=== PATIENT | female | born 1950 | race Caucasian/White ===

== ENCOUNTER → 2019-11-05 15:26 | Outpatient (CLI) | payer MEDICARE, SELFPAY ==
--- NOTE | ~2019-11-05 | XR_ITS ---
EXAMINATION: XR shoulder RT min 2V EXAM DATE: 11/05/2019 15:41 INDICATION: No known recent injury provided at this time. Pain of the right shoulder. TECHNIQUE: The following right shoulder projections obtained: frontal projection with internal rotati on, frontal projection with external rotation, Grashey, and axillary (4+ views). There is no prior s tudy for comparison. FINDINGS: No evidence of right shoulder rotator cuff calcific tendinosis. There is mild glenohumer al, moderate acromioclavicular joint primary osteoarthritis. There are no acute fractures or dislocat ions identified. There is no subcutaneous gas. The soft tissue is unremarkable. There are no radi opaque foreign bodies. IMPRESSION: Mild right glenohumeral, moderate acromioclavicular osteoarthritis. Reviewed, dictated and finalized at location A.
== END ==
PROVIDERS: PCP Physician Assistant; Visit Provider Physician Assistant
DX: M19.011 Primary osteoarthritis, right shoulder (principal)
CPT/HCPCS: 73030

== ENCOUNTER → 2020-03-22 12:18 | Outpatient (CLI) | payer MEDICARE, SELFPAY ==
--- NOTE | ~2020-03-22 | DEXA_ITS ---
Bone Density Report Name: Gay Riddle Age: 69 Sex: Female Ethnicity: White Date of : 1950 Indication: osteopenia; height loss; prior fracture; postmenopausal Referring Provider: BERNARD DAWKINS Study: Bone densitometry was performed. Exam Date: March 22, 2020 Accession number: [id number] Bone Density: Region BMD T-score Z-score Classification AP Spine (L1-L4) 0.835 -1.9 0.3 Osteopenia Femoral Neck (Left) 0.559 -2.6 -0.7 Osteoporosis Total Hip (Left) 0.786 -1.3 0.3 Osteopenia Femoral Neck (Right) 0.543 -2.8 -0.9 Osteoporosis Total Hip (Right) 0.789 -1.3 0.3 Osteopenia Total Hip Mean 0.788 -1.3 0.3 Osteopenia World Health Organization criteria for BMD impression classify patients as: Normal (T-score at or above -1.0), Osteopenia (T-score between -1.0 and -2.5), or Osteoporosis (T-score at or below -2.5). 10-year Fracture Risk: FRAX not reported because: Some T-score for Spine Total or Hip Total or Femoral Neck at or below -2.5 Prior hip or vertebral fracture Previous Exams: Region Exam Age BMD T-score BMD Change BMD Change Date g/cm2 vs Baseline vs Previous AP Spine(L1-L4) 03/22/2020 69 0.835 -1.9 -0.016 -0.063* 04/04/2017 66 0.898 -1.4 0.046 0.030* 10/16/2013 63 0.868 -1.6 0.016 0.043* 09/28/2010 60 0.825 -2.0 -0.027 -0.017 09/09/2009 59 0.842 -1.9 -0.010 -0.004 09/01/2007 57 0.846 -1.8 -0.005 0.010 08/28/2006 56 0.836 -1.9 -0.016 0.010 08/21/2004 54 0.826 -2.0 -0.025 -0.025 07/23/2002 51 0.852 -1.8 Total Hip(Left) 03/22/2020 69 0.786 -1.3 -0.039 -0.116* 04/04/2017 66 0.902 -0.3 0.076 0.043* 10/16/2013 63 0.859 -0.7 0.034 0.057* 09/28/2010 60 0.802 -1.1 -0.024 -0.007 09/09/2009 59 0.809 -1.1 -0.017 0.046* 09/01/2007 57 0.762 -1.5 -0.063 -0.015 08/28/2006 56 0.777 -1.4 -0.048 -0.130* 08/21/2004 54 0.907 -0.3 0.082 0.082 07/23/2002 51 0.825 -1.0 Total Hip(Right) 03/22/2020 69 0.789 -1.3 -0.036 -0.130* 04/04/2017 66 0.918 -0.2 0.093 0.036* 10/16/2013 63 0.882 -0.5 0.057 0.069* 09/28/2010 60 0.813 -1.1 -0.012 -0.057* 09/09/2009 59 0.870 -0.6 0.045 0.059* 09/01/2007 57 0.811 -1.1 -0.014 -0.021 08/28/2006 56 0.832 -0.9 0.007
== END ==
PROVIDERS: PCP Family Medicine; Visit Provider Physician Assistant
DX: M85.88 Other specified disorders of bone density and structure, other site (principal); M81.0 Age-related osteoporosis without current pathological fracture; M85.852 Other specified disorders of bone density and structure, left thigh; M85.851 Other specified disorders of bone density and structure, right thigh
CPT/HCPCS: 77080

== ENCOUNTER → 2020-03-24 08:06 | Outpatient (CLI) | payer MEDICARE, SELFPAY ==
--- NOTE | ~2020-03-24 | MM_ITS ---
EXAMINATION: MM screening sukhdev BI w hodan HISTORY: Screening TECHNIQUE: Craniocaudal and mediolateral oblique 3-D tomosynthesis images were obtained and synthetic 2-D images were generated. CAD analysis was submitted and interpreted. COMPARISON: Comparison to multiple prior studies sequentially, with oldest reviewed study dated 2014. BREAST PARENCHYMAL COMPOSITION: There are scattered areas of fibroglandular density. FINDINGS: There is no evidence of suspicious mass, calcification, or architectural distortion to sugg est malignancy in either breast. There has been no suspicious interval change. IMPRESSION: 1. No mammographic evidence of malignancy. 2. Recommend routine screening mammography in one year. BI-RADS Category 1: Negative Reviewed, dictated and finalized at location A. T PREPARER
== END ==
PROVIDERS: PCP Family Medicine; Visit Provider Family Medicine
DX: Z12.31 Encounter for screening mammogram for malignant neoplasm of breast (principal)
CPT/HCPCS: 77063; 77067

== ENCOUNTER → 2020-08-25 13:44 | Outpatient (REF) | payer MEDICARE, SELFPAY | LOC: ANHLAB 13:44 | PROVIDERS: PCP Family Medicine; Visit Provider Nurse Practitioner | DX: R22.9 Localized swelling, mass and lump, unspecified (principal) | CPT/HCPCS: 88304 ==

== ENCOUNTER 2020-10-28 10:10 | Emergency (ER) | payer MEDICARE, SELFPAY ==
[2020-10-28] VITALS (39 sets, daily range): BP systolic 137–178; BP diastolic 62–96; PULSE 60–83; RESP 12–21; TEMP 37; O2SAT 95–99
--- NOTE | ~2020-10-28 | XR_ITS ---
EXAMINATION: XR chest 1V portable EXAM DATE: 10/28/2020 10:29 INDICATION: Right-sided chest pain radiating to shoulder. Hypertension. TECHNIQUE: Portable AP frontal chest x-ray was obtained. There is no prior study for comparison. FINDINGS: The lungs are hyperinflated which can be seen with chronic obstructive pulmonary disease (a clinical diagnosis of functional impairment), but is not diagnostic of it. The lungs are clear. The re are no pleural effusions. Cardiomediastinal silhouette is normal. There is no pneumothorax suspe cted. The bones and soft tissues are unremarkable. IMPRESSION: 1. No acute cardiopulmonary findings. 2. Hyperinflation. Reviewed, dictated and finalized at location B.
--- NOTE | 2020-10-28 10:15 | ECG_ITS ---
Measurements Intervals [place] Rate: 78 P: 66 ND: 158 QRS: 20 QRSD: 79 T: 9 QT: 350 QTc: 399 Interpretive Statements SINUS RHYTHM NORMAL ECG Electronically Signed On 10-28-2020 10:31:50 CDT by Naeem Richards D.O.
[2020-10-28 10:40] LABS: Basophils Percent Auto 0.5 % (0.2-1.2); Eosinophils Absolute Auto 0.1 K/mm3 (0-0.3); Eosinophils Percent Auto 1.6 % (0-4.4); Hematocrit 39.1 % (37.0-47.0); Hemoglobin 13.3 g/dL (12.0-15.0); Immature Granulocyte Absolute 0.02 K/mm3 (0.00-0.031); Immature Granulocyte Percent A 0.3 % (0-0.5); Mean Corpuscular Hemoglobin 30.2 pg (26-34); Mean Corpuscular Volume 88.9 fl (80-100); Mean Platelet Volume 10.5 fl (7.4-10.4); Monocytes Absolute Auto 0.6 K/mm3 (0.1-0.6); Neutrophils Absolute Auto 5.2 K/mm3 (1.3-6.7); Neutrophils Percent Auto 69.6 % (45.5-73.1); Platelet Count Result 332 k/mm3 (150-375); Red Cell Distribution Width 12.9 % (11.5-14.5); White Blood Count 7.5 K/mm3 (4.5-10.0)
[2020-10-28 10:44] LABS: Alanine Aminotransferase 34 U/L (4-35); Albumin Level 4.7 g/dL (3.5-5.1); Alkaline Phosphatase 87 U/L (38-126); Anion Gap 11 mmol/L (8-16); Aspartate Amino Transferase 42 U/L (14-36); Bilirubin,Total 0.8 mg/dL (0.2-1.3); Blood Urea Nitrogen 16 mg/dL (7-17); Carbon Dioxide 27 mmol/L (22-30); Chloride 95 mmol/L (98-107); Estimated CRCL calculation 44 ml/min; Estimated Glomerular Filt Rate > 60; Glucose 100 mg/dL (65-110); Lipase 176 U/L (23-300); Partial Thromboplastin Time 29.4 SECONDS (22.3-36.8); Potassium 4.1 mmol/L (3.4-5.0); Prothrombin Time 12.6 Seconds (11.1-14.7); Sodium 133 mmol/L (137-145)
[2020-10-28 10:55] LABS: NT Pro B Type Natriuretic Pept 48 pg/mL (5-100); Troponin I < 0.012 ng/mL (0.000-0.034)
[2020-10-28 11:29] LABS: Add Urine Microscopic? YES; Appearance Urine Clear (Clear); Bilirubin Urine Negative (Negative); Blood Urine Negative (Negative); Color Urine Yellow (Yellow); Glucose Urine UA Negative (Negative); Ketones Urine Trace mg/dL (Negative); Leukocyte Esterase Ur Negative LEU/UL (Negative); Mucus Urine Rare /lpf; Nitrate Urine Negative (Negative); Protein Urine Negative (Negative); RBC Urine 0-2 /hpf (0-2); Specific Grav Ur 1.016 (1.001-1.035); Urobilinogen Urine Negative mg/dL (<2.0); WBC Urine 0-3 /hpf
--- NOTE | 2020-10-28 12:15 | ED.GENADULT ---
HPI - General Adult General Chief complaint: Chest Pain <GUANACO Mcgregor Last Filed: 10/28/20 15:36> Stated complaint: left shoulder pain, heaviness in chest <GUANACO Mcgregor Last Filed: 10/28/20 15:36> Time Seen by Provider: 10/28/20 10:14 <GUANACO Mcgregor Last Filed: 10/28/20 15:36> Source: patient, family and old records reviewed <GUANACO Mcgregor Last Filed: 10/28/20 15:36> Mode of arrival: ambulatory <GUANACO Mcgregor Last Filed: 10/28/20 15:36> Limitations: no limitations <GUANACO Mcgregor Last Filed: 10/28/20 15:36> History of Present Illness HPI narrative: Patient is a 70-year-old female who presents noting she has had right shoulder discomfort that started yesterday around noon with aching pain of the shoulder worse with activity and movement notes that she had been stacking bricks as a possible etiology pain persisted throughout the night this morning was sitting and became diaphoretic and felt nauseous which was short-lived. Patient is taken Tylenol for the pain with minimal improvement. Patient in no distress resting comfortably denies similar occurrence in the past is feeling much better at this time notes that the pain of the shoulder is reproducible <GUANACO Mcgregor Last Filed: 10/28/20 15:36> Related Data Home medications: Home Medications Medication Instructions Recorded Confirmed cholecalciferol (vitamin D3) 50 50 mcg PO DAILY 10/01/19 03/23/20 mcg (2,000 unit) capsule omega-3 fatty acids 1,000 mg 1,000 mg PO DAILY 10/01/19 03/23/20 capsule <GUANACO Mcgregor Last Filed: 10/28/20 15:36> Allergies/adverse reactions: Allergies Allergy/AdvReac Type Severity Reaction Status Date / Time No Known Allergies Allergy Mild Verified 10/13/20 13:23 <GUANACO Mcgregor Last Filed: 10/28/20 15:36> Review of Systems Review of Systems: All systems reviewed & are unremarkable except as noted in HPI and below <GUANACO Mcgregor Last Filed: 10/28/20 15:36> [facility] Past Medical History Medical History: Medical History Hypokalemia Migraine with vertigo Right shoulder pain Wellness examination <Al San PA-C - Last Filed: 10/28/20 15:36> Family History Family History: Family History Mother Cerebrovascular accident Carcinoma of colon Father Family history of coronary artery disease <Al San PA-C - Last Filed: 10/28/20 15:36> Social History Social History: Social History Smoking status: Never smoker Alcohol intake: current Substance use: never Gender identity (if verbalized by the patient): Female <Al San PA-C - Last Filed: 10/28/20 15:36> Exam Narrative: GENERAL: Well-appearing, well-nourished, and in no acute distress. HEAD: Normocephalic, atraumatic. EYES: PERRLA and EOMI. ENT: Nares clear, no rhinorrhea or epistaxis. Mucous membranes moist. Oropharynx without tonsillar hypertrophy exudate or other lesions. NECK: Supple. No adenopathy or masses. No carotid bruits or JVD CHEST: Clear to auscultation. No respiratory distress. No wheezes rales or rhonchi HEART: Regular rate and rhythm. No murmur heard. Normal peripheral pulses. ABDOMEN: Soft, nontender, nondistended EXTREMITIES: Normal range of motion. No edema. Patient notes tenderness of the right upper trapezius musculature SKIN: Warm, dry, no rash. NEURO: No focal deficits. Alert and oriented x3. Cranial nerves II through XII grossly intact. Normal speech and gait PSYCH: Normal mood and affect. <Al San PA-C - Last Filed: 10/28/20 15:36> Course Course Emergency Course: Patient aware of case findings treatment plan diagnosis resting comfortably no pain at this
[2020-10-28 13:56] LABS: Troponin I < 0.012 ng/mL (0.000-0.034)
== END 2020-10-28 15:50 | disposition home or self-care (01) ==
PROVIDERS: Emergency Medicine Emergency Medical Services; Emergency Provider General Practice; PCP Family Medicine
DX: M25.511 Pain in right shoulder (principal)
CPT/HCPCS: 36415; 71045; 80053; 81001; 83690; 83880; 84484; 85025; 85610; 85730; 93005; 96374; 99284; J0131

== ENCOUNTER → 2021-03-30 07:25 | Outpatient (CLI) | payer MEDICARE, SELFPAY ==
--- NOTE | ~2021-03-30 | MM_ITS ---
EXAMINATION: MM screening [facility] BI w hodan HISTORY: Screening TECHNIQUE: Craniocaudal and mediolateral oblique 3-D tomosynthesis images were obtained and synthetic 2-D images were generated. CAD analysis was submitted and interpreted. COMPARISON: Comparison to multiple prior studies sequentially, with oldest reviewed study dated 10/18. BREAST PARENCHYMAL COMPOSITION: There are scattered areas of fibroglandular density. FINDINGS: There is no evidence of suspicious mass, calcification, or architectural distortion to sugg est malignancy in either breast. There has been no suspicious interval change. IMPRESSION: 1. No mammographic evidence of malignancy. 2. Recommend routine screening mammography in one year. BI-RADS Category 2: Benign finding(s). Reviewed, dictated and finalized at location A. IE SUPERVISOR
== END ==
PROVIDERS: PCP Family Medicine; Visit Provider Family Medicine
DX: Z12.31 Encounter for screening mammogram for malignant neoplasm of breast (principal)
CPT/HCPCS: 77063; 77067

== ENCOUNTER → 2022-03-27 10:13 | Outpatient (CLI) | payer MEDICARE, SELFPAY ==
--- NOTE | ~2022-03-27 | DEXA_ITS ---
Bone Density Report Name: LIZ TOMPKINS Age: 71 Sex: Female Ethnicity: White Date of : 1950 Indication: osteopenia; monitoring treatment; height loss; postmenopausal Referring Provider: Archana Jara Study: Bone densitometry was performed. Exam Date: March 27, 2022 Accession number: [id number] Bone Density: Region BMD T-score Z-score Classification AP Spine (L1-L4) 0.858 -1.7 0.6 Osteopenia Femoral Neck (Left) 0.571 -2.5 -0.5 Osteoporosis Total Hip (Left) 0.877 -0.5 1.2 Normal Femoral Neck (Right) 0.551 -2.7 -0.7 Osteoporosis Total Hip (Right) 0.858 -0.7 1.0 Normal Total Hip Mean 0.867 -0.6 1.1 Normal World Health Organization criteria for BMD impression classify patients as: Normal (T-score at or above -1.0), Osteopenia (T-score between -1.0 and -2.5), or Osteoporosis (T-score at or below -2.5). 10-year Fracture Risk: FRAX not reported because: Some T-score for Spine Total or Hip Total or Femoral Neck at or below -2.5 Treated for osteoporosis Previous Exams: Region Exam Age BMD T-score BMD Change BMD Change Date g/cm2 vs Baseline vs Previous AP Spine(L1-L4) 03/27/2022 71 0.858 -1.7 0.007 0.023* 03/22/2020 69 0.835 -1.9 -0.016 -0.063* 04/04/2017 66 0.898 -1.4 0.046 0.030* 10/16/2013 63 0.868 -1.6 0.016 0.043* 09/28/2010 60 0.825 -2.0 -0.027 -0.017 09/09/2009 59 0.842 -1.9 -0.010 -0.004 09/01/2007 57 0.846 -1.8 -0.005 0.010 08/28/2006 56 0.836 -1.9 -0.016 0.010 08/21/2004 54 0.826 -2.0 -0.025 -0.025 07/23/2002 51 0.852 -1.8 Total Hip(Left) 03/27/2022 71 0.877 -0.5 0.051 0.091* 03/22/2020 69 0.786 -1.3 -0.039 -0.116* 04/04/2017 66 0.902 -0.3 0.076 0.043* 10/16/2013 63 0.859 -0.7 0.034 0.057* 09/28/2010 60 0.802 -1.1 -0.024 -0.007 09/09/2009 59 0.809 -1.1 -0.017 0.046* 09/01/2007 57 0.762 -1.5 -0.063 -0.015 08/28/2006 56 0.777 -1.4 -0.048 -0.130* 08/21/2004 54 0.907 -0.3 0.082 0.082 07/23/2002 51 0.825 -1.0 Total Hip(Right) 03/27/2022 71 0.858 -0.7 0.034 0.070* 03/22/2020 69 0.789 -1.3 -0.036 -0.130* 04/04/2017 66 0.918 -0.2 0.093 0.036* 10/16/2013 63 0.882 -0.5 0.057 0.069* 09/28/2010 60 0.813 -1.1 -0.012 -0.
== END ==
PROVIDERS: PCP Family Medicine; Visit Provider Nurse Practitioner Family
DX: M81.0 Age-related osteoporosis without current pathological fracture (principal); M85.88 Other specified disorders of bone density and structure, other site
CPT/HCPCS: 77080

== ENCOUNTER → 2022-11-30 13:14 | Outpatient (CLI) | payer MEDICARE, SELFPAY ==
--- NOTE | ~2022-11-30 | US_ITS ---
EXAMINATION: US soft tissue UE RT DATE: 11/30/2022 13:30 INDICATION: Localized swelling, mass and lump, right upper extremity. TECHNIQUE: Multiple grayscale and Doppler ultrasound images of the right upper extremity were obtaine d. COMPARISON: None FINDINGS: In the patient's area of concern in right upper extremity near the wrist, there is a 3 mm c yst. IMPRESSION: 1. 3 mm cyst in the patient's area of concern near right wrist, likely a ganglion cyst. Reviewed, dictated and finalized at location E. IMPRESSION: 1. 3 mm cyst in the patient's area of concern near right wrist, likely a gangli on cyst.
== END ==
PROVIDERS: PCP Physician Assistant; Visit Provider Physician Assistant
DX: R22.31 Localized swelling, mass and lump, right upper limb (principal)
CPT/HCPCS: 76882

== ENCOUNTER → 2023-03-20 11:50 | Outpatient (CLI) | payer MEDICARE, SELFPAY ==
--- NOTE | ~2023-03-20 | MM_ITS ---
EXAMINATION: MM screening sukhdev BI w hodan HISTORY: Screening mammogram TECHNIQUE: Craniocaudal and mediolateral oblique 3-D tomosynthesis images were obtained and synthetic 2-D images were generated. CAD analysis was submitted and interpreted. COMPARISON: 03/30/2021, 03/20/2020, 12/04/2018 bilateral screening mammogram examinations BREAST PARENCHYMAL COMPOSITION: The breasts are almost entirely fatty. FINDINGS: There is no evidence of suspicious mass, calcification, or architectural distortion to sugg est malignancy in either breast. There has been no suspicious interval change. IMPRESSION: 1. No mammographic evidence of malignancy. 2. Recommend routine screening mammography in one year. BI-RADS Category 1: Negative Reviewed, dictated and finalized at location A. ERER
== END ==
PROVIDERS: PCP Physician Assistant; Visit Provider Physician Assistant
DX: Z12.31 Encounter for screening mammogram for malignant neoplasm of breast (principal)
CPT/HCPCS: 77063; 77067

== ENCOUNTER 2023-06-06 11:23 | Outpatient (CLI) | payer MEDICARE, SELFPAY ==
--- NOTE | ~2023-06-06 | CT_ITS ---
Non-contrast Head CT History: Dysarthria Technique: Axial non-contrast imaging of the brain was performed. Dose reduction technique was used on this scan by utilizing automated exposure control and iterative reconstruction technique. The dose -length product (DLP) was 599.57 mGy-cm. Findings: There is no evidence of intracranial hemorrhage, mass lesion, or acute infarct. Hyperdense areas in the periventricular white matter consistent with chronic microvascular ischemic change. Th e ventricles and subarachnoid spaces are normal in size. The calvarium appears normal. The visualiz ed paranasal sinuses and mastoid air cells are clear. Impression: No acute abnormality evident. Probable chronic microvascular ischemic changes in the periventricular white matter. Reviewed, dictated and finalized at location . SANDER Impression: No acute abnormality evident. Probable chronic microvascular ischemic changes in the periventricular white ma tter.
== END 2023-06-06 11:24 ==
LOC: MICIMG 11:24
PROVIDERS: PCP Physician Assistant; Visit Provider Physician Assistant
DX: R47.1 Dysarthria and anarthria (principal)
CPT/HCPCS: 70450

== ENCOUNTER 2023-06-07 14:31 | Outpatient (CLI) | payer MEDICARE, SELFPAY ==
--- NOTE | ~2023-06-07 | US_ITS ---
EXAMINATION: US carotid duplex BI DATE: 06/07/2023 15:18 INDICATION: Dysarthria and anarthria. Carotid atherosclerosis. TECHNIQUE: Grayscale, color Doppler, and pulsed Doppler images of the cervical carotid arteries were obtained. The degree of vessel stenosis is placed in one of the following categories: normal, <50%, 5 0-69%, >=70% but less than near-occlusion, near-occlusion, or total occlusion. Note that percent sten osis relative to normal distal artery lumen diameter is indirectly measured from velocity measurement s as described by Ancelmo, et al. Radiology 2003; 229:340-346. COMPARISON: None. FINDINGS: RIGHT: The right common carotid artery (CCA) peak systolic velocity (PSV) is 108 cm/s. The right internal ca rotid artery (ICA) PSV is 86 cm/s. The right ICA end-diastolic velocity (EDV) is 20 cm/s. The right I CA/CCA PSV ratio is 0.8. Grayscale and color Doppler images yield an estimate of <50% diameter reduct ion from plaque in the ICA. The external carotid artery (ECA) PSV is 110 cm/s. There is antegrade jamarcus w in the right vertebral artery. LEFT: The left CCA PSV is 108 cm/s. The left ICA PSV is 103 cm/s. The left ICA EDV is 21 cm/s. The left ICA /CCA PSV ratio is 1.0. Grayscale and color Doppler images yield an estimate of <50% diameter reductio n from plaque in the ICA. The ECA PSV is 97 cm/s. There is antegrade flow in the left vertebral arter y. IMPRESSION: 1. <50% stenosis in the right internal carotid artery. 2. <50% stenosis in the left internal carotid artery. Reviewed, dictated and finalized at location A. S REPRESENTATIVE UNIFORMS
== END 2023-06-07 14:32 | disposition home or self-care (01) ==
PROVIDERS: PCP Physician Assistant; Visit Provider Physician Assistant
DX: R47.1 Dysarthria and anarthria (principal); I65.23 Occlusion and stenosis of bilateral carotid arteries
CPT/HCPCS: 93880

== ENCOUNTER 2024-02-17 12:04 | Emergency (ER) | payer MEDICARE, SELFPAY ==
--- NOTE | 2024-02-17 12:07 | ED.SKABFB ---
HPI - Skin/Abscess/Foreign Bdy General Chief complaint: Skin/Abscess/Foreign Body Stated complaint: Bug Bite Left Leg Time Seen by Provider: 02/17/24 12:15 Source: patient Mode of arrival: ambulatory Limitations: no limitations History of Present Illness HPI narrative: Body is a 73-year-old female patient presenting to the clinic today with complaints of a possible bug bite to the left lower leg. She reports she 1st noticed this 6 days ago. She was outside and does not know if a bug bit her or if she scraped her leg on the something. Has developed increase in pain, swelling, redness, and some discharge coming from the site. Related Data Home Medications Medication Instructions Recorded Confirmed cholecalciferol (vitamin D3) 50 50 mcg PO DAILY 10/01/19 02/17/24 mcg (2,000 unit) capsule omega-3 fatty acids 1,000 mg 1,000 mg PO DAILY 10/01/19 02/17/24 capsule (Fish Oil Concentrate) vitamin B complex 1 cap PO DAILY 02/17/24 02/17/24 Allergies Allergy/AdvReac Type Severity Reaction Status Date / Time melon Allergy Anaphylaxis Verified 02/17/24 12:11 Review of Systems Review of Systems: Pertinent positives per HPI. Patient denies any fever, chills, rash, headache, visual changes, dizziness, cough, runny nose, sore throat, shortness of breath, chest pain, palpitations, nausea, vomiting, diarrhea, constipation, abdominal pain, or any urinary issues. [facility] Past Medical History Medical History Hypokalemia Migraine with vertigo Right shoulder pain Wellness examination Family History Family History Mother Cerebrovascular accident Carcinoma of colon Father Family history of coronary artery disease Social History Social History Smoking status: Never smoker Alcohol intake: current Substance use: never Lack of Transportation: No Lack of Food: Never True Current Housing: I Have Housing Concerned About Future Housing: No Difficulty Paying Gas/Electric Bills: No Difficulty Paying for Meds: No Currently Unemployed: No Education: Associate Degree Difficulty w/ Childcare or Family Care: No Living arrangements: with family Gender identity (if verbalized by the patient): Female Comments At the time of my signature, I reviewed and agree with the nursing past medical, surgical, social, and family history. There is no relevant family history pertinent to the patient complaint. Exam Narrative: General: Well-developed, well nourished, in no apparent distress Head: Normocephalic, atraumatic. Cardio: Regular rate and rhythm, s1 and s2 normal, no murmur appreciated. Resp: Clear to auscultation bilaterally, no rhonchi, rales, wheezing or rubs. Integumentary: [employer], warm, and dry, red, swollen, indurated, tender area measuring 3 cm x 2 cm with mild fluctuance, 1+ pitting edema to the left lower leg, was able to express some brown white purulent discharge, wound culture was obtained and sent to the lab Course Course Emergency Course: Portions of this record may have been created with voice recognition software. Level of Care: Express Care Visit Vital Signs Vital signs: Vital Signs Temperature 37.1 C 02/17/24 12:09 Pulse Rate 68 02/17/24 12:09 Respiratory Rate 16 02/17/24 12:09 Blood Pressure 138/85 02/17/24 12:09 Pulse Oximetry 97 02/17/24 12:09 Oxygen Delivery Room Air 02/17/24 12:09 Temperature 37.1 C 02/17/24 12:13 Pulse Rate 68 02/17/24 12:13 Respiratory Rate 16 02/17/24 12:13 Blood Pressure 138/85 02/17/24 12:13 Pulse Oximetry 97 02/17/24 12:13 Oxygen Delivery Room Air 02/17/24 12:13 Vital signs reviewed MDM - Skin/Abscess/Foreign Bdy MDM Narrative Medical decision making narrative: At the time of visit patient is resting comfortably on the exam table. Patient appears to be nontoxic. Labs: Wound culture was obtained and sent to the lab. Plan: I suspect patient has a localized cellulitis to the left lower extremity. Prescription for doxycycline, mupirocin cream, and Keflex was sent to the pharmacy. Supportive measures were discussed with the patient and they voiced understanding discharge instructions and agrees to treatment plan. Return precautions reviewed Differential Diagnosis Differential diagnosis: Likely abscess of skin or subcutaneous tissue, cellulitis and insect bites Discharge Plan Discharge Clinical Impression: Cellulitis Qualifiers: Site of cellulitis: extremity Site of cellulitis of extremity: lower extremity Laterality: left Qualified Code(s): L03.116 - Cellulitis of left lower limb Patient Disposition: Home, Self-Care Condition: Stable Instructions: Antibiotic Form, Cellulitis (ED) Additional Instructions: Wound culture was obtained in the clinic today and sent to the lab Take cephalexin and doxycycline as prescribed Increase fluids and stay well hydrated May take Tylenol/Motrin as needed for pain or fever Keep wound clean and dry Wash wound daily with soap and water Apply mupirocin cream to the affected area twice daily x7 days May apply bandage to the wound if wound is draining Follow-up with your primary care doctor in 3-5 days if symptoms persist or sooner if they worsen Prescriptions: New doxycycline monohydrate 100 mg capsule 100 mg PO BID 7 Days Qty: 14 0RF cephalexin 500 mg capsule 500 mg PO Q8H 7 Days Qty: 21 0RF mupirocin 2 % ointment 1 applic topical BID 7 Days Qty: 22 0RF No Action vitamin B complex [B Complex] Capsule 1 cap PO DAILY cholecalciferol (vitamin D3) 50 mcg (2,000 unit) capsule 50 mcg PO DAILY omega-3 fatty acids [Fish Oil Concentrate] 1,000 mg capsule 1,000 mg PO DAILY simvastatin 40 mg tablet 40 mg PO DAILY Qty: 90 2RF olmesartan 40 mg tablet See Rx Instructions .ROUTE .COMPLEX Qty: 90 2RF Dose Instruction: TAKE 1 TABLET BY MOUTH DAILY Rx Instructions: TAKE 1 TABLET BY MOUTH DAILY hydrochlorothiazide 12.5 mg tablet 12.5 mg PO DAILY Qty: 90 2RF Follow-up/Referrals: Francisco Steiner MD [Primary Care Provider] - Time of Disposition: 12:26 Quality NIHSS Nursing Documentation ED NIHSS nursing documentation: reviewed/agree
[2024-02-17 12:09] VITALS: BP 138/85; PULSE 68; RESP 16; TEMP 37.1; O2SAT 97
[2024-02-17 12:13] VITALS: BP 138/85; PULSE 68; RESP 16; TEMP 37.1; O2SAT 97
== END 2024-02-17 12:33 | disposition home or self-care (01) ==
PROVIDERS: Emergency Provider Nurse Practitioner Family; PCP Family Medicine
DX: L03.116 Cellulitis of left lower limb (principal)
CPT/HCPCS: 87070; 87075; 87205; 99213; G0463

== ENCOUNTER 2024-04-07 15:02 | Outpatient (CLI) | payer MEDICARE, SELFPAY ==
--- NOTE | ~2024-04-07 | MM_ITS ---
EXAMINATION: MM screening sukhdev BI w hodan HISTORY: Screening TECHNIQUE: Craniocaudal and mediolateral oblique 3-D tomosynthesis images were obtained and synthetic 2-D images were generated. CAD analysis was submitted and interpreted. COMPARISON: Comparison to multiple prior studies sequentially, with oldest reviewed study dated 11/22. BREAST PARENCHYMAL COMPOSITION: Not dense: There are scattered areas of fibroglandular density. FINDINGS: There is no evidence of suspicious mass, calcification, or architectural distortion to sugg est malignancy in either breast. There has been no suspicious interval change. IMPRESSION: 1. No mammographic evidence of malignancy. 2. Recommend routine screening mammography in one year. BI-RADS Category 1: Negative Reviewed, dictated and finalized at location B. ALING TORCH OPERATOR
== END 2024-04-07 15:03 | disposition home or self-care (01) ==
LOC: MICIMG 15:02
PROVIDERS: PCP Family Medicine; Visit Provider Physician Assistant
DX: Z12.31 Encounter for screening mammogram for malignant neoplasm of breast (principal)
CPT/HCPCS: 77063; 77067

== ENCOUNTER 2024-05-07 10:10 | Outpatient (CLI) | payer MEDICARE, SELFPAY ==
--- NOTE | ~2024-05-07 | US_ITS ---
EXAMINATION: US transvaginal INDICATION: Postmenopausal bleeding Comparison:No prior studies for comparison. TECHNIQUE: Multiple endovaginal sonographic images of the pelvis performed. FINDINGS: The uterus measures 6.9 x 3 x 4.7 cm. The endometrial complex measures 3 mm. The ovaries are not visualized. No free fluid. There is no free fluid in the pelvis. There are no abnormal masses seen on either side. IMPRESSION: 1. Unremarkable pelvic ultrasound. Reviewed, dictated and finalized at location B. [facility]
== END 2024-05-07 10:11 | disposition home or self-care (01) ==
LOC: MICIMG 10:10
DX: N93.9 Abnormal uterine and vaginal bleeding, unspecified (principal)
CPT/HCPCS: 76830

== ENCOUNTER 2024-11-19 09:16 | Outpatient (CLI) | payer MEDICARE, SELFPAY ==
--- NOTE | ~2024-11-19 | DEXA_ITS ---
Bone Density Report Name: LIZ TOMPKINS Age: 74 Sex: Female Ethnicity: White Date of : 1950 Indication: osteopenia; monitoring treatment; height loss; prior fracture; secondary osteoporosis; Referring Provider: Francisco Steiner Study: Bone densitometry was performed. Exam Date: November 19, 2024 Accession number: [id number] Bone Density: Region BMD T-score Z-score Classification AP Spine(L1-L4) 0.910 -1.2 1.2 Osteopenia Femoral Neck (Left) 0.549 -2.7 -0.6 Osteoporosis Total Hip (Left) 0.869 -0.6 1.3 Normal Femoral Neck (Right) 0.623 -2.0 0.1 Osteopenia Total Hip (Right) 0.757 -1.5 0.3 Osteopenia Total Hip Mean 0.813 -1.1 0.8 Osteopenia World Health Organization criteria for BMD impression classify patients as: Normal (T-score at or above -1.0), Osteopenia (T-score between -1.0 and -2.5), or Osteoporosis (T-score at or below -2.5). 10-year Fracture Risk: FRAX not reported because: Some T-score for Spine Total or Hip Total or Femoral Neck at or below -2.5 Prior hip or vertebral fracture Treated for osteoporosis Previous Exams: -- Region Exam Age BMD T-score BMD Change BMD Change Date g/cm2 vs Baseline vs Previous -- AP Spine (L1-L4) 11/19/2024 74 0.910 -1.2 6.9%# 6.0%* 03/27/2022 71 0.858 -1.7 0.8%# 2.8%* 03/22/2020 69 0.835 -1.9 -1.9%# -7.0%* 04/04/2017 66 0.898 -1.4 5.4%# 3.5%* 10/16/2013 63 0.868 -1.6 1.9%# 5.2%* 09/28/2010 60 0.825 -2.0 -3.2%# -2.0% 09/09/2009 59 0.842 -1.9 -1.1%# -0.5% 09/01/2007 57 0.846 -1.8 -0.6%# 1.2% 08/28/2006 56 0.836 -1.9 -1.8%# -1.8%# 07/23/2002 51 0.852 -1.8 Total Hip(Left) 11/19/2024 74 0.869 -0.6 5.3%# -0.9% 03/27/2022 71 0.877 -0.5 6.2%# 11.5%* 03/22/2020 69 0.786 -1.3 -4.8%# -12.8%* 04/04/2017 66 0.902 -0.3 9.3%# 5.0%* 10/16/2013 63 0.859 -0.7 4.1%# 7.1%* 09/28/2010 60 0.802 -1.1 -2.9%# -0.9% 09/09/2009 59 0.809 -1.1 -2.0%# 6.1%* 09/01/2007 57 0.762 -1.5 -7.6%# -1.9% 08/28/2006 56 0.777 -1.4 -5.8%# -5.8%# 07/23/2002 51 0.825 -1.0 Total Hip(Right) 11/19/2024 74 0.757 -1.5 -8.2%# -11.8%* 03/27/2022 71 0.858 -0.7 4.1%# 8.8%* 03/22/2020 69 0.789 -1.3 -4.4%# -14.1%* 04/04/2017 66 0.918 -0.2 11.3%# 4.1%* 10/16/2013 63 0.882 -0.5 6.9%# 8.4%* 09/28/2010 60 0.813 -1.1 -1.4%# -6.6%* 09/09/2009 59 0.870 -0.6 5.5%# 7.3%* 09/01/2007 57 0.811 -1.1 -1.7%# -2.5% 08/28/2006 56 0.832 -0.9 0.9%# 0.9%# 07/23/2002 51 0.825 -1.0 -- *Denotes significance at 95% confidence level, LSC for AP Spine = 0.022 g/cm2, LSC for Total Hip = 0.027 g/cm2 # Denotes dissimilar scan types or analysis methods Clinical Information Provided by Patient: Have had a previous hip or vertebral fracture Has had a low trauma fracture Has secondary osteoporosis Is being treated for osteoporosis Has used the following medications: Vitamin D Patient maximum height was 64 Menopause Age: 48 Does not regularly consume dairy products Drinks caffeinated beverages Onset of menses at age 11 Number of children 2 Impression: The patient has established osteoporosis, based on the Left Femoral Neck T-score and the existence of a prior fracture. The patient has risk factors, including: previous fracture. The BMD for the Total Hip(Right) decreased, changing by -11.8% since the last DXA exam. Discussion: SIGNIFICANT BONE LOSS OBSERVED. Adherence to therapy (including calcium and vitamin D intake) should be assessed. If compliance is not a factor, review management and exclusion of secondary causes of bone loss. It is important to ask patients whether they are taking their medications and to encourage continued and appropriate compliance with their osteoporosis therapies to reduce fracture risk. It is also important to review their risk factors and encourage appropriate calcium and vitamin D intakes, exercise, fall prevention and other lifestyle measures. Follow-Up: Consider a repeat BMD and Vertebral Fracture Assessment (VFA) exam in 2 years or sooner if medically necessary, to reassess this patient's status. Reported by: DANUTA on 11/19/2024 9:55:00 AM. Reviewed, dictated and finalized at location A.
== END 2024-11-19 09:17 | disposition home or self-care (01) ==
LOC: MICIMG 09:17
PROVIDERS: PCP Family Medicine; Visit Provider Family Medicine
DX: Z78.0 Asymptomatic menopausal state (principal); M85.88 Other specified disorders of bone density and structure, other site; M81.0 Age-related osteoporosis without current pathological fracture; M85.851 Other specified disorders of bone density and structure, right thigh
CPT/HCPCS: 77080

== ENCOUNTER 2025-01-21 07:35 | Outpatient (CLI) | payer MEDICARE, SELFPAY ==
--- OUTSIDE RECORDS SUMMARY | 2025-01-21 07:42 | XMS_ITS | Clinical Summary ---
Author Organization [facility] Address [address] [place] [address] Care Team Providers Care Flat Optical Element Maker Name Role Phone Francisco Steiner MD Primary Care Provider Allergies Active Allergy Reactions Criticality Noted Date Comments Melon Swelling Medium 10/01/2019 Swelling of throat Medications docosahexanoic acid-epa (FISH OIL) 120-180 mg capsule 0 0 5 Active olmesartan (BENICAR) 40 mg tablet take 1 tablet by oral route every day 0 0 4 Active simvastatin (ZOCOR) 40 mg tablet take 1 tablet by oral route every day in the evening 0 0 4 Active hydroCHLOROthia zide (HYDRODIURIL) 25 mg tablet Take 0.5 tablets (12.5 mg total) by mouth daily Active ergocalciferol, vitamin D2, (VITAMIN D2 ORAL) Take by mouth Active vitamin B complex capsule Take 1 capsule by mouth daily Active calcium citrate-vitamin D3 250 mg-5 mcg (200 unit) tablet Take by mouth Active se-4-vpa-epa-fi sh oil-vit D3 300-1,000-1,000 mg-mg-unit capsule Take by mouth Active [employer]BER [employer] REPRESENTATIVE Thyroid 90 mg tablet TAKE 1 TABLET BY MOUTH EVERY MORNING AT LEAST 30 MINUTES PRIOR TO FOOD OR OTHER MEDICATIONS [address] (PROTONIX) 40 mg EC tablet Take 1 tablet (40 mg total) by mouth daily 90 tablet 3 5 12/06/19 26 Active Active Problems Problem Noted Date Diagnosed Date Rectal bleeding 09/17/2024 Assessment & Plan (09/21/2024 2:41 PM CDT): Start hydrocortisone cream. Patient is advised to start taking fiber supplements daily. Will schedule colonoscopy for evaluation Tubular adenoma of colon 11/05/2023 Assessment & Plan (09/21/2024 2:41 PM CDT): Schedule colonoscopy in view of the rectal bleeding. Gastroesophageal reflux disease without esophagi tis 11/05/2023 Assessment & Plan (09/21/2024 2:40 PM CDT): Continue pantoprazole daily. No worrisome signs or symptoms. Family history of colon cancer in mother 022 Overview (09/21/2021): Added automatically from request for surgery [id number] Resolved Problems Problem Noted Date Diagnosed Date Resolved Date Family history of colon cancer 09/21/2021 11/05/2023 Overview (09/21/2021): Added automatically from request for surgery [id number] Encounter for screening colonoscopy 09/21/2021 11/05/2023 Overview (09/21/2021): Added automatically from request for surgery [id number] Irritable bowel syndrome with diarrhea 05/23/2017 11/05/2023 Assessment & Plan (11/11/2018 4:05 PM CDT): Erratic bms and recurrence of sx since she stoipped the hi ifber diet. Advised resume the hi fiber diet and return prn Assessment & Plan (05/23/2017 2:13 PM DIRECTOR CARDIOLOGY): On hi fiber diet and bentyl she is having one formed bm/d. much better. Advised to continue the regimen and return 3 mos to reassess need for bentyl. Gastroenteritis and colitis, viral 04/30/2017 11/05/2023 Assessment & Plan (04/30/2017 1:45 PM DIRECTOR CARDIOLOGY): 04/08 sudden onset diarrhea, low grade forver, body aches so went to local ER abndd CT interpreted as colitis due to thick wall colon. Given bentyl and cipro. Cramping and D improved and yesterdqy one bm, none today. Colon 10/15 wnl. Anxious and functional by history. Encounters Date Type Department Care Team Description 12/05/2024 Orders Only [facility] Gastroenterology at [address] [place] [address] Stu Galindo MD 12/04/2024 Telephone [facility] Gastro[facility] at [address] [place] [address] Lawanda Monsalve MA 11/06/2024 Results Follow-Up [facility] at [address] [place] [address] Stu Galindo MD Surgical pathology 11/05/2024 1:30 PM CDT - 11/05/2024 2:00 PM CDT Surgery [address] [address] Stu Galindo MD COLON BIOPSY 11/05/2024 1:20 PM CDT Anesthesia Event [address] [address] Zeke Aguirre MD 11/05/2024 12:15 PM CDT - 11/05/2024 2:30 PM CDT Hospital Encounter [address] [address] Stu Galindo MD Rectal bleeding Discharge Disposition: Discharge to home or self care from Last 3 Months Immunizations Immunization Administration Dates Next Due Influenza, Quad, Adjuvantated, Intramuscular Influenza, Trivalent, High D ose, Split, Preservative Free, Intramuscular 01/28/2018,01/27/2018 Pneumococcal Conjugate PCV 13 12/17/2019 Tdap 04/27/2013 ZOSTER LIVE 05/11/2013 Surgical History Surgery Date Site/Laterality Comments COLONOSCOPY 05/31/2011 - 06/30/2011 COLONOSCOPY 11/05/2024 Medical History Medical History Date Comments Tension headache Headache, tensi on Hypertension Hypertension Hx Other Medical hyperlipidema; Comments: TRW 12/10/2013 - HLD (hyperlipidemia) Family History Medical History Relation Name Comments Heart disease Father Other Father heart attack di ed at age 69; Colon cancer Mother Stroke Mother Stroke; Relation Name Status Comments Brother 2 Alive Daughter 1 Alive Father (Age 69) Mother (Age 89) Sister 1 Alive Son 1 Alive Social History Tobacco Use Types Packs/Day Years Used Date Smoking Tobacco: Never Smokeless Tobacco: Never Tobacco Cessation:Counseling Given: Not Answered Alcohol Use Standard Drinks/Week Comments Yes 0 (1 standard drink = 0.6 oz pur e alcohol) socially AUDIT-C Answer Date Recorded Q1: How often do you have a drink containing alc ohol? Monthly or less 11/05/2024 Average Number of Drinks Not on file 025 Frequency of Binge Drinking Not on file 09/2024 PHQ-2 Answer Date Recorded PHQ-2 Score 0 11/22/2018 Personal Safety Answer Date Recorded Have you ever been in or are you currently in a harmful physical or emotional relationship or is someone making you feel afraid or unsafe? Denies 11/05/2024 Comments No Sex and Gender Information Value Date Recorded Sex Assigned at Not on file Legal Sex Female 2:15 AM DIRECTOR CARDIOLOGY Gender Identity Not on file Sexual Orientation Not on file Obstetrics History Last Filed Vital Signs Vital Sign Reading Time Taken Comments Blood Pressure 184/67 11/05/2024 2:20 PM CDT Pulse 66 11/05/2024 2:20 PM CDT Temperature 36.4 C (97.6 F) 11/05/2024 2:20 PM CDT Respiratory Rate 16 11/05/2024 2:20 PM CDT Oxygen Saturation 100% 11/05/2024 2:20 PM CDT Inhaled Oxygen Concentration - - Weight 56.7 kg (125 lb) 11/05/2024 12:23 PM CDT Height 157.5 cm (5' 2) 11/05/2024 12:23 PM CDT Body Mass Index 22.86 11/05/2024 12:23 PM CDT Plan of Treatment Health Maintenance Due Date Last Done Comments Hepatitis C Screening 1950 Osteoporosis Screening-Bone Density Scan 1950 Hepatitis B Screening 1966 Zoster Vaccine (2 of 3) 07/06/2013 05/11/2013 Well Visit 65+ 2013 Depression Screening 11/12/2019 11/11/2018, 11/11/2018, 04/30/2017 Pneumococcal vaccine 65+ (2 of 2 - PCV20 or PCV21) 12/16/2020 12/17/2019 DTaP/Tdap/Td Vaccine (2 - Td or Tdap) 04/27/2023 04/27/2013 Influenza Vaccine (#1) 2024 , 01/28/2018, 01/27/2018 Fall Risk Assessment 11/05/2025 11/05/2024, 11/11/2018, 04/30/2017 Colon Cancer Screening-CT Colonography Discontinued 11/05/2024, 12/19/2021, 10/22/2016, Additional history exists Colon Cancer Screening-Colonoscopy Discontinued 11/05/2024, 12/19/2021, 10/22/2016, Additional history exists Colon Cancer Screening-DNA Stool Discontinued 11/05/2024, 12/19/2021, 10/22/2016, Additional history exists Colon Cancer Screening-FIT Discontinued 11/05, 12/19/2021, 10/22/2016, Additional history exists Colon Cancer Screening-FOBT Discontinued 09/2024, 12/19/2021, 10/22/2016, Additional history exists Colon Cancer Screening-Sigmoidoscopy Discontinued 11/05/2024, 12/19/2021, 10/22/2016, Additional history exists Colorectal Cancer Screening Discontinued Procedures Procedure Name Priority Date/Time Associated Diagnosis Comments SURGICAL PATHOLOGY STAT 11/05/2024 2: 42 PM CDT Rectal bleeding COLON BIOPSY 11/05/2024 1:15 PM CDT Rectal bleeding COLONOSCOPY 11/05/2024 12:51 PM CDT from Last 3 Months Results * Surgical pathology (11/05/2024 2:42 PM CDT) Tissue (Polyp(s), colon/colorectal, esophageal, gastric) 11/05/2024 1:45 PM CDT Narrative PATHOLOGY [facility] - 11/06/2024 9:40 AM CDT EPIC results best viewed via link to PDF [facility] Department of Pathology [address] [place] [id number] Note to Patients: This report may contain a detailed description of human tissue sent by a health care provider to the laboratory for pathologic evaluation. The content of this report is essential for diagnosis and may provide important critical findings. This information may be unfamiliar to patients to review without a medical professional present. It is advised that the patient review this report in the presence of a health care provider who can answer questions and explain the details. Final Report Patient Name: GAY RIDDLE Address: [address] [place] [address] Gender: F : 1950 (Age: 74) Service: Gastro Location: [facility] Hospital #: [id number] Patient Type: [facility] Taken: 11/05/2024 Received: 11/05/2024 Accessioned: 11/05/2024 Reported: 11/06/2024 Physician(s):Dr. Stu Galindo M.D. Diagnosis: Rectum, biopsy: - Hyperplastic polyp. - No evidence of dysplasia or malignancy. Fred Patterson MD Report Electronically Reviewed and Signed Out By Fred Patterson MD 11/06/2024 09:40:24 Specimen(s) Received: A: Rectal polyp x1 Microscopic Description: Microscopic examination shows a polypoid fragment of rectal mucosa with hyperplastic glandular changes. There is no evidence of marked crypt dilation, lateral branching, or flattening of the crypt bases. The findings are consistent with a hyperplastic polyp. There is no evidence of dysplasia or malignancy. Clinical History: Rectal bleeding [K62.5] Colob biopsy Gross Description: The specimen is submitted in a single formalin filled container labeled GAY RIDDLE and rectal polyp. It is one gao tissue fragment measuring 2 mm. All in one cassette. Kym Smith R.N., P.A./Rola Bartholomew M.D. REPORT IMAGES AND SCANNED DOCUMENTS, IF INCLUDED, ONLY VIEWABLE IN PDF VERSION OF REPORT The performance characteristics of some immunohistochemical stains, fluorescence in-situ hybridization tests and immunophenotyping by flow cytometry cited in this report (if any) were determined by the Surgical Pathology Department at [facility] as part of an ongoing quality assurance supervisor trim program and in compliance with federally mandated regulations drawn from the Clinical Laboratory Improvement Act of 1988 (CLIA '88). Some of these tests rely on the use of analyte specific reagents and are subject to specific labeling requirements by the US Food and Drug Administration. Such diagnostic tests may only be performed in a facility that is certified by the Department of Health and Human Services as a high complexity laboratory under CLIA '88. The FDA has determined that such clearance or approval is not necessary. This test is used for clinical purposes. It should not be regarded as investigational or for research. Nevertheless, federal rules concerning the medical use of analyte specific reagents require that the following disclaimer be attached to the report: This test was developed and its performance characteristics determined by the Surgical Pathology Department [facility]. It has not been cleared or approved by the U. S. Food and Drug Administration. Note for decalcified specimens: This assay has not been validated on decalcified tissues. Results should be interpreted with caution given the possibility of false negativity on decalcified specimens us Stu Galindo MD LAB PATHOLOGY ORDERABLES F inal Result Performing Organization Address City/State/[facility] Co de Phone Number PATHOLOGY [address] [address] * Colonoscopy (11/05/2024 12:51 PM CDT) Anatomical Region Laterality Modality Other Narrative Procedure Note Stu Galindo MD - 11/05/2024 12:51 PM CDT [facility] Patient Name: Gay Riddle Procedure Date: 11/05/2024 12:51 PM Date of : 1950 Admit Type: Outpatient Age: 74 Gender: Female Attending MD: Stu Galindo M.D., Room: [facility] ENDOSCOPY ROOM 1 Note Status: Finalized Patient Profile: This is a 74 year old female. Mother had coloncancer. Had episodes of bright red blood per rectum. Procedure: Colonoscopy Indications: Last colonoscopy: November 2021, Rectal bleeding Referring MD: Francisco Steiner M.D. Providers: Stu Galindo M.D. Impression: - Anal fissure. - One 4 mm polyp in the rectum, removed with ajumbo cold forceps. Resected and retrieved. - Internal hemorrhoids. Recommendation: - Await pathology results. - Repeat colonoscopy in 5 years for surveillance. - Continue present medications. - Nitroglycerin 0.4% ointment twice daily for 1month. Medicines: Monitored Anesthesia Care Complications: No immediate complications. Estimated Blood Loss: Estimated blood loss: none. Procedure: Pre-Anesthesia Assessment: - Prior to the procedure, a History and Physicalwas performed, and patient medications and allergieswere reviewed. The patient's tolerance of previous anesthesia was also reviewed. The risks andbenefits of the procedure and the sedation options and risks were discussed with the patient. All questions were answered, and informed consent was obtained. Prior Anticoagulants: The patient has taken noanticoagulant or antiplatelet agents. ASA Grade Assessment: Per anesthesia note and evaluation. After reviewing the risks and benefits, the patient was deemed in satisfactory condition to undergo the procedure. The benefits, risks and alternatives of theprocedure and sedation were discussed and informed consentwas obtained. All questions were answered. Please referto the signed informed consent document in the medical record. The bowel preparation used was Miralax via split dose instruction. The bowel preparation usedwas bisacodyl tablets via split dose instruction. The scope was passed under direct vision. The Pediatric Colonoscope [id number] was introduced through the anus and advanced to the the cecum, identified by appendiceal orifice and ileocecalvalve. The quality of the bowel preparation was good.Bowel prep was administered using a split dose. Findings: The perianal and digital rectal examinations were normal. Smallhealing anal fissure noted. The cecum appeared normal. The sigmoid colon, descending colon, transverse colon and ascending colon appeared normal. A 4 mm polyp was found in the rectum. The polyp was sessile. Thepolyp was removed with a jumbo cold forceps. Resection and retrieval were complete. Internal hemorrhoids were found during retroflexion. The hemorrhoids were small. Electronically signed by Stu Galindo M.D. Stu Galindo M.D. 11/05/2024 1:55:44 PM Number of Addenda: 0 Note Initiated On: 11/05/2024 12:51 PM Procedure Code(s): --- Professional --- 28620, Colonoscopy, flexible; with biopsy, single or multiple Diagnosis Code(s): --- Professional --- K64.8, Other hemorrhoids D12.8, Benign neoplasm of rectum K62.5, Hemorrhage of anus and rectum CPT copyright 2022 [employer]. All rights reserved. The codes documented in this report are preliminary and upon biology department chair reviewmay be revised to meet current compliance requirements. Recognized by the [employer] for promoting quality in endoscopy Stu Galindo MD ENDOSCOPY PROCEDURES Final Result from Last 3 Months Insurance [facility] MEDICARE ADVANTAGE [facility] Address: [address] [address] [place] [address] [facility] Address: [address] [place] [address] Advance Directives For more information, please contact: [phone] * Full Code (Latest Code Status on File) Date Activated Date Inactivated Comments 11/05/2024 12:25 PM 11/05/2024 6:30 PM * Full Code Date Activated Date Inactivated Comments 11/05/2024 12:25 PM 11/05/2024 12:25 PM * Full Code Date Activated Date Inactivated Comments 12/19/2021 7:44 AM 12/19/2021 1:40 PM * Full Code Date Activated Date Inactivated Comments 12/19/2021 7:44 AM 12/19/2021 7:44 AM Care Teams Flat Optical Element Maker Relationship Specialty Start Date End Date Francisco Steiner MD [address] [facility] [address] [place] [address] PCP - General 12/10/13
--- NOTE | 2025-01-21 07:58 | ECHO_ITS ---
Patient Info Name: Gay Riddle Age: 74 years : 1950 Gender: Female Ht: 62 in Wt: 130 lbs BSA: 1.62 m2 HR: 57 bpm BP: 132 / 77 mmHg Technical Quality: Good Exam Date: 01/21/2025 8:29 AM Patient Status: O Admit Date: 01/21/2025 Exam Type: CA echo doppler color flow Complete two-dimensional, color flow and Doppler transthoracic echocardiogram is performed. Model Making Supervisor: Flores Cotter Attending Provider: Ortiz Arroyo Summary 1. Complete two-dimensional, color flow and Doppler transthoracic echocardiogram is performed. 2. Left ventricular chamber dimension is normal. 3. Left ventricular systolic function is normal, estimated at 65-70. 4. The left ventricular diastolic function is abnormal. 5. E/e' 15 is elevated. 6. Left atrial chamber dimension is mildly enlarged. 7. There is moderate aortic valve sclerosis. 8. There is mild aortic valve stenosis with aortic valve area of 1.7 cm2 by continuity equation. 9. There is mild aortic valve regurgitation. 10. The mitral valve has a mildly calcified annulus. 11. There is trace mitral valve regurgitation. 12. There is mild tricuspid valve regurgitation. 13. No pulmonary hypertension, estimated pulmonary arterial systolic pressure is 38 mmHg. Left Ventricle E/e' 15 is elevated. Left ventricular chamber dimension is normal. Left ventricular systolic function is normal, estimated at 65-70. The left ventricular diastolic function is abnormal. Right Ventricle Right ventricular chamber dimension is normal. Right ventricular systolic function is normal and with normal TAPSE 2.0 cm. Left Atria Left atrial chamber dimension is mildly enlarged. Right Atria Right atrial chamber dimension is normal. Aortic Valve The aortic valve is trileaflet. There is moderate aortic valve sclerosis. There is mild aortic valve stenosis with aortic valve area of 1.7 cm2 by continuity equation. There is mild aortic valve regurgitation. Pulmonic Valve There is no pulmonic regurgitation. Mitral Valve The mitral valve has a mildly calcified annulus. There is no mitral valve stenosis. There is trace mitral valve regurgitation. Tricuspid Valve There is mild tricuspid valve regurgitation. No pulmonary hypertension, estimated pulmonary arterial systolic pressure is 38 mmHg. Pericardium/Pleural There is no pericardial effusion. Inferior Vena Cava Normal inferior vena cava with >50% collapse upon inspiration consistent with normal right atrial pressure, 5 mmHg. Aorta The aortic root size at the sinus of Valsalva is normal. Left Ventricular Outflow Tract Name Value Normal LVOT 2D LVOT Diameter 2.0 cm LVOT Doppler LVOT Peak Velocity 97 cm/s LVOT Peak Gradient 4 mmHg LVOT Mean Gradient 2 mmHg LVOT VTI 25 cm LVOT Stroke Volume 83 ml LVOT CO 4.7 l/min LVOT CI 2.9 l/min/m2 Pulmonic Valve Name Value Normal RVOT Doppler RVOT Peak Velocity 77 cm/s RVOT Peak Gradient 2 mmHg PV Doppler PV Peak Velocity 89 cm/s PV Peak Gradient 3 mmHg Mitral Valve Name Value Normal MV Diastolic Function MV E Peak Velocity 79 cm/s MV A Peak Velocity 75 cm/s MV E/A 1.0 MV Decel Time (PW) 191 ms MV Annular TDI MV E/e' (Septal) 15.8 MV E/e' (Lateral) 14.9 MV E/e' (Average) 15.3 Tricuspid Valve Name Value Normal TV Regurgitation Doppler TR Peak Velocity 288 cm/s TR Peak Gradient 27 mmHg Estimated PAP/RSVP RA Pressure 5 mmHg <=5 PA Systolic Pressure 38 mmHg <36 RV Systolic Pressure 38 mmHg <36 Aortic Valve Name Value Normal AV Doppler AV Peak Velocity 189 cm/s AV Peak Gradient 14 mmHg AV Area (Cont Eq Natalio) 1.7 cm2 AV DI (Natalio) 0.51 AV Regurgitation 2D LVOT Area 3.3 cm2 Ventricles Name Value Normal LV Dimensions 2D/MM IVS Diastolic Thickness (2D) 0.9 cm 0.6-1.0 LVID Diastole (2D) 3.8 cm 3.8-5.2 LVIW Diastolic Thickness (2D) 1.0 cm 0.6-0.9 LVID Systole (2D) 2.4 cm 2.2-3.5 LVOT Diameter 2.0 cm LV Mass (2D Cubed) 108.86 g 67.00-162.00 LV Mass Index (2D Cubed) 67 g/m2 43-95 Relative Wall Thickness (2D) 0.52 <=0.42 LV Fractional Shortening/Ejection Fraction 2D/MM LV Fractional Shortening (2D) 38 % 27-45 LV EF (2D Teichholz) 69 % LV Diastolic Volume (4C MOD) 81 ml LV EF (4C MOD) 66 % LV Diastolic Volume (2C MOD) 67 ml LV EF (2C MOD) 62 % LV Diastolic Volume (BP MOD) 74 ml 46-106 LV Diastolic Volume Index (BP MOD) 46 ml/m2 29-61 LV Systolic Volume (BP MOD) 28 ml 14-42 LV Systolic Volume Index (BP MOD) 17 ml/m2 8-24 LV EF (BP MOD) 62 % 54-74 LV Diastolic Length (4C) 6.9 cm LV Systolic Length (4C) 5.5 cm LV Stroke Volume (4C MOD) 54 ml Atria Name Value Normal LA Dimensions LA Volume (4C A-L) 45 ml LA Volume (BP A-L) 42 ml RA Dimensions RA Systolic Major [place] Length (4C) 5.4 cm 2.2-2.8 RA Area (4C) 17.4 cm2 <=18.0 Report Signatures
== END 2025-01-21 07:36 | disposition home or self-care (01) ==
PROVIDERS: PCP Family Medicine; Visit Provider Physician Assistant
DX: R01.1 Cardiac murmur, unspecified (principal); I35.1 Nonrheumatic aortic (valve) insufficiency; I36.1 Nonrheumatic tricuspid (valve) insufficiency
CPT/HCPCS: 93306